=== PATIENT | female | born 1980 | race American Indian/Alaskan Native ===

== ENCOUNTER 2019-01-07 06:32 | Emergency (ER) | payer MEDICAID ==
--- NOTE | 2019-01-07 06:40 | Emergency Department Report ---
ED Chest Pain HPI - General Chief Complaint: Chest Pain Stated Complaint: CHEST PAIN Time Seen by Provider: 01/07/19 06:37 Source: patient, EMS (verbal report received from EMS.ems notes not available at time of chart dictation), RN notes reviewed, old records reviewed Mode of arrival: Ambulatory - History of Present Illness Initial Comments: This is a 38-year-old female. The patient is not known to this provider previously. 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 The patient is brought to the hospital by emergency medical services for nontraumatic right-sided chest and breast pain. The pain started at 5:00 in the morning. It is constant. It starts in the chest, breast, on the right side, radiates to the back. The patient denies oral contraceptive use, , DVT, pulmonary embolus risk factors. The patient endorses no aspirin use, and makes no indication of family history of DVT, pulmonary embolus, or coronary artery disease. The patient endorses no vomiting, no diaphoresis, no exertional shortness of breath. The patient is right-hand dominant. The pain increases with palpation, and it decreases with rest. The pain was also decreased with hydromorphone, and ketorolac. MD Complaint: chest pain -: Sudden Pain Location: right chest Pain Radiation: back Severity: moderate Quality: aching, heaviness, sharp Consistency: constant Improves With: medication-other, rest Worsens With: palpation Aspirin use within the Past 7 Days: (0) No - Related Data Previous Rx's Medication Instructions Recorded Last Taken Type Ibuprofen [Motrin] 600 mg PO Q8H PRN #30 tablet 01/07/19 Unknown Rx Allergies Allergy/AdvReac Type Severity Reaction Status Date / Time No Known Allergies Allergy Unverified 01/07/19 07:04 Heart Score - HEART Score History: Slightly suspicious EKG: Non-specific Age: < 45 Risk factors: 1-2 risk factors Troponin: < normal limit HEART Score: 2 - Critical Actions Critical Actions: 0-3 pts:0.9-1.7%risk of adverse cardiac event.Candidate for discharge ED Review of Systems ROS: Stated complaint: CHEST PAIN Other details as noted in HPI Constitutional: denies: fever Eyes: denies: eye discharge ENT: denies: dental pain Respiratory: denies: cough, shortness of breath, wheezing Cardiovascular: chest pain Gastrointestinal: denies: nausea, vomiting Genitourinary: denies: dysuria Musculoskeletal: back pain Skin: denies: lesions Neurological: weakness Psychiatric: anxiety ED Past Medical Hx - Medications Home Medications: Home Medications Medication Instructions Recorded Confirmed Last Taken Type Ibuprofen [Motrin] 600 mg PO Q8H PRN #30 tablet 01/07/19 Unknown Rx ED Physical Exam - General General appearance: alert, in no apparent distress - Head Head exam: Present: atraumatic, normocephalic - Eye Eye exam: Present: EOMI. Absent: normal appearance (chronically deformed right eye. Left eye appears to be within normal limits) - ENT ENT exam: Present: normal exam, normal orophraynx, mucous membranes moist, normal external ear exam - Neck Neck exam: Present: normal inspection, full ROM. Absent: tenderness, men ingismus - Respiratory Respiratory exam: Present: normal lung sounds bilaterally, chest wall tenderness (there is reproducible chest and breast tenderness. There is no redness, pus or streaking. There is reproducible right sided lateral thoracic rib tendernes s. There is reproducible right posterior thoracic rib tenderness. There are no vesicles noted. Chaperoned by nurse Meliton Colbert). Absent: respiratory distress - Cardiovascular Cardiovascular Exam: Present: regular rate, normal rhythm, normal heart sounds. Absent: bradycardia, tachycardia, irregular rhythm, systolic murmur, diastolic murmur, rubs, gallop - GI/Abdominal GI/Abdominal exam: Present: soft. Absent: distended, tenderness, guarding, rebound, rigid, pulsatile mass - Extremities Exam Extremities exam: Present: normal inspection, full ROM, other (2+ pulses noted in the bilateral upper, lower extremities. Compartments soft. No long bony tenderness. The pelvis is stable.). Absent: pedal edema, joint swelling, calf tenderness - Back Exam Back exam: Present: normal inspection, full ROM, paraspinal tenderness. Absent: tenderness, CVA tenderness (R) - Neurological Exam Neurological exam: Present: alert, oriented X3, normal gait, other (Extraocular movements intact. Tongue midline. No facial droop. Facial sensation intact to light touch in the V1, V2, V3 distribution bilaterally. 5 and 5 strength in 4 extremities.. Sensation is intact to light touch in 4 extremities.). Absent: motor sensory deficit - Psychiatric Psychiatric exam: Present: anxious - Skin Skin exam: Present: warm, dry, intact, normal color. Absent: rash ED Course Vital Signs 01/07/19 01/07/19 01/07/19 06:40 06:43 06:46 Temperature 97.8 F Pulse Rate 96 H 87 86 Respiratory 15 16 9 L Rate Blood Pressure 142/107 142/107 O2 Sat by Pulse 99 99 98 Oximetry 01/07/19 01/07/19 01/07/19 07:00 07:06 07:16 Temperature Pulse Rate 84 78 Respiratory 10 L 20 12 Rate Blood Pressure 142/107 140/100 O2 Sat by Pulse 98 99 Oximetry 01/07/19 01/07/19 01/07/19 07:38 08:22 08:31 Temperature Pulse Rate 81 58 L Respiratory 13 12 Rate Blood Pressure 140/100 140/100 122/80 O2 Sat by Pulse 98 96 96 Oximetry 01/07/19 01/07/19 01/07/19 08:45 09:00 09:15 Temperature Pulse Rate 56 L 58 L 51 L Respiratory 13 18 11 L Rate Blood Pressure 140/100 131/80 131/80 O2 Sat by Pulse 98 98 98 Oximetry 01/07/19 01/07/19 01/07/19 09:30 09:45 10:00 Temperature Pulse Rate 56 L 57 L 54 L Respiratory 16 16 15 Rate Blood Pressure 110/81 131/80 110/81 O2 Sat by Pulse 100 99 98 Oximetry 01/07/19 01/07/19 01/07/19 10:15 10:30 10:45 Temperature Pulse Rate 53 L 55 L 54 L Respiratory 15 14 14 Rate Blood Pressure 110/81 117/79 121/81 O2 Sat by Pulse 98 100 99 Oximetry 01/07/19 01/07/19 01/07/19 11:00 11:15 11:30 Temperature Pulse Rate 53 L 56 L 52 L Respiratory 14 14 13 Rate Blood Pressure 123/80 123/80 120/80 O2 Sat by Pulse 97 97 96 Oximetry 01/07/19 11:45 Temperature Pulse Rate 81 Respiratory 15 Rate Blood Pressure 120/80 O2 Sat by Pulse 95 Oximetry - Reevaluation(s) Reevaluation #1: 01/07/19 11:22 The patient is reassessed multiple times while in the department. She is sleeping comfortably, in a stretcher, and endorses that her pain is much improved. Resting heart rate much improved, saturating well, and patient in no acute distress. The patient was instructed about her laboratory studies, and need to follow up with outpatient cardiology. FABIAN score - Fabian Score Age > 65: (0) No Aspirin use within the Past 7 Days: (0) No 3 or more CAD Risk Factors: (0) No 2 or more Angina events in past 24 hrs: (0) No Known CAD with more than 50% Stenosis: (0) No Elevated Cardiac Markers: (0) No ST Deviation Greater than 0.5mm: (0) No FABIAN Score: 0 ED Medical Decision Making - Lab Data Result diagrams: 01/07/19 06:54 01/07/19 06:54 Vital Signs 01/07/19 01/07/19 01/07/19 06:40 06:43 06:46 Temperature 97.8 F Pulse Rate 96 H 87 86 Respiratory 15 16 9 L Rate Blood Pressure 142/107 142/107 O2 Sat by Pulse 99 99 98 Oximetry 01/07/19 01/07/19 01/07/19 07:00 07:06 07:16 Temperature Pulse Rate 84 78 Respiratory 10 L 20 12 Rate Blood Pressure 142/107 140/100 O2 Sat by Pulse 98 99 Oximetry 01/07/19 01/07/19 01/07/19 07:38 08:22 08:31 Temperature Pulse Rate 81 58 L Respiratory 13 12 Rate Blood Pressure 140/100 140/100 122/80 O2 Sat by Pulse 98 96 96 Oximetry 01/07/19 01/07/19 01/07/19 08:45 09:00 09:15 Temperature Pulse Rate 56 L 58 L 51 L Respiratory 13 18 11 L Rate Blood Pressure 140/100 131/80 131/80 O2 Sat by Pulse 98 98 98 Oximetry 01/07/19 09:30 Temperature Pulse Rate 56 L Respiratory 16 Rate Blood Pressure 110/81 O2 Sat by Pulse 100 Oximetry Lab Results 01/07/19 01/07/19 01/07/19 Range/Units 06:54 06:54 06:54 WBC 7.6 (4.5-11.0) K/mm3 RBC 4.62 (3.65-5.03) M/mm3 Hgb 14.8 H (10.1-14.3) gm/dl Hct 42.7 (30.3-42.9) % MCV 92 (79-97) fl MCH 32 (28-32) pg MCHC 35 H (30-34) % RDW 14.0 (13.2-15.2) % Plt Count 345 (140-440) K/mm3 PT (12.2-14.9) Sec. INR (0.87-1.13) Sodium 138 (137-145) mmol/L Potassium 4.0 (3.6-5.0) mmol/L Chloride 105.8 (98-107) mmol/L Carbon Dioxide 22 (22-30) mmol/L Anion Gap 14 mmol/L BUN 15 (7-17) mg/dL Creatinine 0.5 L (0.7-1.2) mg/dL Estimated GFR > 60 ml/min BUN/Creatinine Ratio 30 % Glucose 99 (65-100) mg/dL Calcium 8.6 (8.4-10.2) mg/dL Magnesium 1.90 (1.7-2.3) mg/dL Total Bilirubin 0.40 (0.1-1.2) mg/dL Direct Bilirubin < 0.2 (0-0.2) mg/dL AST 15 (5-40) units/L ALT 11 (7-56) units/L Alkaline Phosphatase 86 (35-129) units/L Total Creatine Kinase 350 H (30-135) units/L Troponin T < 0.010 (0.00-0.029) ng/mL Total Protein 7.4 (6.3-8.2) g/dL Albumin 4.7 (3.9-5) g/dL Albumin/Globulin Ratio 1.7 % Lipase 39 (13-60) units/L HCG, Quant (0-4) mIU/mL 01/07/19 01/07/19 Range/Units 06:54 06:54 WBC (4.5-11.0) K/mm3 RBC (3.65-5.03) M/mm3 Hgb (10.1-14.3) gm/dl Hct (30.3-42.9) % MCV (79-97) fl MCH (28-32) pg MCHC (30-34) % RDW (13.2-15.2) % Plt Count (140-440) K/mm3 PT 13.1 (12.2-14.9) Sec. INR 0.94 (0.87-1.13) Sodium (137-145) mmol/L Potassium (3.6-5.0) mmol/L Chloride (98-107) mmol/L Carbon Dioxide (22-30) mmol/L Anion Gap mmol/L BUN (7-17) mg/dL Creatinine (0.7-1.2) mg/dL Estimated GFR ml/min BUN/Creatinine Ratio % Glucose (65-100) mg/dL Calcium (8.4-10.2) mg/dL Magnesium (1.7-2.3) mg/dL Total Bilirubin (0.1-1.2) mg/dL Direct Bilirubin (0-0.2) mg/dL AST (5-40) units/L ALT (7-56) units/L Alkaline Phosphatase (35-129) units/L Total Creatine Kinase (30-135) units/L Troponin T (0.00-0.029) ng/mL Total Protein (6.3-8.2) g/dL Albumin (3.9-5) g/dL Albumin/Globulin Ratio % Lipase (13-60) units/L HCG, Quant < 2 (0-4) mIU/mL - EKG Data -: EKG Interpreted by Co EKG shows normal: sinus rhythm Rate: normal - EKG Data When compared to previous EKG there are: previous EKG unavailable 01/07/19 10:00 there is no prior EKG available for comparison. EKG #1 shows a sinus rhythm, normal axis, QTC prolonged, high left ventricular voltage, borderline atrial enlargement, motion artifact, this is an abnormal EKG, this is not consistent with ST elevation myocardial infarction. This EKG #2 appears to be unchanged, persistent left ventricular hypertrophy, nonspecific T-wave abnormality V2, high left ventricular voltage is noted, also abnormal, however, not consistent with ST elevation myocardial infarction. - Radiology Data Radiology results: report reviewed, image reviewed X-ray of the chest interpreted as negative for acute disease - Medical Decision Making Differential diagnosis, including but not limited to: Costochondritis, GERD, gastritis, hiatal hernia, pneumonia, pericarditis, myocarditis, acute coronary syndrome Assessment and plan: 38-year-old female, reports no pulmonary embolus or DVT risk factors, low risk by well's criteria, perc negative, low risk from a adverse cardiac event via The heart score, EKG unchanged 2, troponin negative 1, troponin #2 pending, with reproducible chest and thoracic pain. Exam is not consistent with shingles, zoster, cellulitis, or abscess. Suspect reproducible musculoskeletal pain. The patient is at low risk for major adverse cardiac event Assuming troponin -1/2 time, we will discharge the patient with appropriate pain medication, and she will be instructed to follow-up with outpatient cardiology to complete her risk stratification. Critical care attestation.: If time is entered above; I have spent that time in minutes in the direct care of this critically ill patient, excluding procedure time. ED Disposition Clinical Impression: Chest wall pain Disposition: DC-01 TO HOME OR SELFCARE Is pt being admited?: No Does the pt Need Aspirin: No Condition: Good Instructions: Chest Pain (ED), Costochondritis (ED) Additional Instructions: Rest, avoid heavy lifting, and avoid strenuous physical activities. Range of motion in the right upper extremity as tolerated. Take pain medication as needed/directed, and make sure to take with food, as the pain medication may cause an upset stomach. Laboratory studies were unremarkable, and the patient should follow-up with an outpatient vp integrity within the next 3-5 days to obtain outpatient stress test. Contact any of the listed cardiology practices on the phone numbers provided, and informed the front office staff that you, the patient, were seen here in the emergency room for chest pain, and we have recommended close outpatient follow-up for a cardiac stress test. Please return to the emergency room right away with new pain, worsened pain, migration of pain, projectile vomiting, change in mental status, confusion, inability to tolerate liquid feeds, new, worsening or different symptoms. Descanse, evite levantar objetos pesados ??y evite las actividades fsicas agotadoras. Rango de movimiento en la extremidad superior derecha segn lo tolerado. [place] los analgsicos segn sea necesario / indicado, y asegrese de tomarlos con alimentos, ya que los analgsicos pueden causar malestar estomacal. Los estudios de laboratorio fueron normales, y el paciente debe realizar un seguimiento con un cardilogo ambulatorio dentro de los siguientes 3 a 5 sharpe para obtener brianda prueba de esfuerzo ambulatorio. Comunquese con cualquiera de las prcticas de cardiologa indicadas en los nmeros de telfono proporcionados, e informe al personal de la oficina de que usted, el paciente, fue atendido aqu en la anaid de emergencias para el dolor de pecho, y le recomen damos un seguimiento ambulatorio cercano para brianda prueba de esfuerzo cardaco . Regrese de inmediato a la anaid de emergencias con dolor nuevo, dolor empeorado, migracin del vmito, vmitos con proyectiles, cambios en el estado mental, confusin, incapacidad para tolerar alimentos lquidos, sntomas nuevos, que empeoran o diferentes. Prescriptions: Ibuprofen [Motrin] 600 mg PO Q8H PRN #30 tablet PRN Reason: Pain Referrals: MICHELLE BUCHANAN MD [Primary Care Provider] - 3-5 Days REGI ZACARIAS MD [Staff Physician] - 3-5 Days ARTI PERDUE MD [Staff Physician] - 3-5 Days
[2019-01-07 07:05] LABS: Hematocrit 42.7 % (30.3-42.9); Hemoglobin 14.8 gm/dl (10.1-14.3); Mean Corpuscular HGB Conc 35 % (30-34); Mean Corpuscular Volume 92 fl (79-97); Platelet Count 345 K/mm3 (140-440); Red Blood Count 4.62 M/mm3 (3.65-5.03)
[2019-01-07 07:18] LABS: INR 0.94 (0.87-1.13)
[2019-01-07 07:33] LABS: Alanine Aminotransferase 11 units/L (7-56); Albumin 4.7 g/dL (3.9-5)
[2019-01-07] MEDS ORDERED: TYLENOL PO ONE (07:33)
[2019-01-07] MEDS ORDERED: PEPCID IV ONE (07:33)
[2019-01-07] MEDS ORDERED: TORADOL IV ONE (07:33)
[2019-01-07 07:34] LABS: BUN/Creatinine Ratio 30; Blood Urea Nitrogen 15 mg/dL (7-17); Calcium 8.6 mg/dL (8.4-10.2); Hemolysis Index 24
[2019-01-07 07:35] LABS: Bilirubin,Direct < 0.2 mg/dL (0-0.2)
[2019-01-07] MEDS ORDERED: DILAUDID IM ONE (07:46)
--- NOTE | 2019-01-07 08:21 | XRay Report ---
CHEST 2 VIEWS INDICATION: Chest pain. COMPARISON: None similar at this institution. FINDINGS: PA and lateral chest radiographs demonstrate normal cardiomediastinal silhouette. Clear lungs. Intact bones. EKG leads. CONCLUSION: No acute disease in the chest. Thank you for the opportunity to participate in this patient's care.
[2019-01-07 12:59] VITALS: BP 120/80
== END 2019-01-07 11:47 | disposition home or self-care (01) ==
LOC: ED 06:32
DX: R07.89 Other chest pain (principal)
CPT/HCPCS: 36415; 71046; 80048; 80076; 82550; 83690; 83735; 84484; 84702; 85027; 85610; 93005; 93010; 96372; 96374; 96375; 99284; J1170; J1885

== ENCOUNTER 2019-09-19 00:37 | Emergency (ER) | payer MEDICAID ==
[2019-09-19] MEDS ORDERED: SODIUM CHLORIDE 0.9% 1000 ML 1,000 ML IV ONE (02:06)
[2019-09-19 02:54] LABS: Basophils % (Auto) 0.5 % (0.0-1.8); Eosinophils # (Auto) 0.3 K/mm3 (0.0-0.4); Eosinophils % (Auto) 3.7 % (0.0-4.3); Hematocrit 36.8 % (30.3-42.9); Lymphocytes # (Auto) 2.5 K/mm3 (1.2-5.4); Lymphocytes % (Auto) 32.8 % (13.4-35.0); Mean Corpuscular HGB Conc 35 % (30-34); Mean Corpuscular Volume 91 fl (79-97); Monocytes # (Auto) 0.7 K/mm3 (0.0-0.8); Monocytes % (Auto) 9.1 % (0.0-7.3); Platelet Count 285 K/mm3 (140-440); Red Blood Count 4.04 M/mm3 (3.65-5.03); Red Cell Distribution Width 13.6 % (13.2-15.2)
[2019-09-19 03:04] LABS: Bilirubin,Urine NEG (Negative); Blood,Urine MOD (Negative); Color,Urine Yellow (Yellow); Mucus,Urine FEW /HPF; Protein,Urine <15 mg/dL mg/dL (Negative); Urobilinogen,Urine < 2.0 mg/dL (<2.0)
--- NOTE | 2019-09-19 03:05 | Cat Scan Report ---
CT OF THE ABDOMEN AND PELVIS WITHOUT CONTRAST INDICATION / CLINICAL INFORMATION: Left flank pain. Rule out kidney stones. TECHNIQUE: All CT scans at this location are performed using CT dose reduction for ALARA by means of automated e xposure control. COMPARISON: None available. FINDINGS: ABDOMEN: There are numerous small calculi throughout the medullary portions of both kidneys. There is also a probable component of medullary nephrocalcinosis. There is moderate left pelvocaliectasis and proximal ureterectasis. The liver, spleen, gallbladder, bile ducts, pancreas, adrenal glands and bowel are normal. No adenopa thy is seen. The lung bases are clear. PELVIS: The left ureter is moderately dilated to the upper SI joint. There is a 3 mm calculus at that site, best seen on axial image #126. The distal left ureter, right ureter and urinary bladder are no rmal. The uterus is mildly lobulated, suggestive of fibroids. I see no evidence of adnexal mass or free. A normal appendix is present and there is no evidence of diverticulitis. I do not identify a hernia. No acute osseous abnormality is seen. IMPRESSION: 1. 3 mm calculus in the left ureter at the level of the superior SI joint is causing moderate hydrone phrosis. 2. 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 3. Probable uterine fibroids. Signer Name: Rodolfo Coats MD Signed: 09/19/2019 3:00 AM Workstation Name: [id number]
[2019-09-19 03:06] LABS: HCG Qualitative,Urine Negative (Negative)
[2019-09-19 03:22] LABS: Alanine Aminotransferase 15 units/L (7-56); Albumin 3.8 g/dL (3.9-5); BUN/Creatinine Ratio 10; Blood Urea Nitrogen 6 mg/dL (7-17); Calcium 9.3 mg/dL (8.4-10.2); Hemolysis Index 8
--- NOTE | 2019-09-19 04:53 | Emergency Department Report ---
ED Abdominal Pain HPI - General Chief Complaint: Abdominal Pain Stated Complaint: LEFT FLANK PAIN Source: patient, EMS Mode of arrival: Ambulatory Limitations: No Limitations - History of Present Illness Initial Comments: Patient is 39-year-old female with a history of chronic recurrent kidney stones who presents to the ED via EMS with complaint of acute onset of persistent severe left flank pain that radiates to the left lower quadrant with nausea and vomiting for the last 4 hours. Patient states that the pain is sharp, stabbing and persistent. Patient denies vaginal bleeding, vaginal discharge, dysuria, urinary frequency and urgency, chest pain, shortness of breath, low back pain, dizziness, fever and chills. MD Complaint: abdominal pain, flank pain (left flank), other (nausea and vomiting) -: Sudden, hour(s) (4) Location: LLQ, suprapubic, L flank Radiation: LLQ, L flank Migration to: no migration Severity scale (0 -10): 8 Quality: stabbing, sharp Consistency: constant, now resolved Improves With: medication Worsens With: nothing Associated Symptoms: denies other symptoms, nausea, vomiting. denies: diarrhea, fever, chills, constipation, dysuria, hematemesis, hematochezia, melena, hematuria, syncope Treatments Prior to Arrival: NSAIDs - Related Data Previous Rx's Medication Instructions Recorded Last Taken Type Ibuprofen [Motrin] 600 mg PO Q8H PRN #30 tablet 01/07/19 Unknown Rx Ciprofloxacin HCl [Ciprofloxacin 500 mg PO Q12HR #20 tab 09/19/19 Unknown Rx TAB] Ketorolac [Toradol] 10 mg PO Q8H PRN #20 tablet 09/19/19 Unknown Rx Ondansetron [Zofran ODT TAB] 8 mg PO Q8HR PRN #20 tab.rapdis 09/19/19 Unknown Rx Tamsulosin [Flomax] 0.4 mg PO QDAY #10 cap 09/19/19 Unknown Rx traMADoL [Ultram] 50 mg PO Q6HR PRN #12 tablet 09/19/19 Unknown Rx Allergies Allergy/AdvReac Type Severity Reaction Status Date / Time No Known Allergies Allergy Unverified 01/07/19 07:04 ED Review of Systems ROS: Stated complaint: LEFT FLANK PAIN Other details as noted in HPI Constitutional: denies: chills, fever Eyes: denies: eye pain, eye discharge, vision change ENT: denies: ear pain, throat pain Respiratory: denies: cough, shortness of breath, wheezing Cardiovascular: denies: chest pain, palpitations Endocrine: no symptoms reported Gastrointestinal: abdominal pain (left flank pain), nausea, vomiting. denies: diarrhea Genitourinary: denies: urgency, dysuria, discharge Musculoskeletal: denies: back pain, joint swelling, arthralgia Skin: denies: rash, lesions Neurological: denies: headache, weakness, paresthesias Psychiatric: denies: anxiety, depression Hematological/Lymphatic: denies: easy bleeding, easy bruising ED Past Medical Hx - Past Medical History Previous Medical History?: Yes Hx Hypertension: Yes Hx Psychiatric Treatment: Yes (Depression and anxiety) Additional medical history: angina and right eye injury - Surgical History Past Surgical History?: Yes Additional Surgical History: eye, kidney stone removal, and - Social History Smoking Status: Current Every Day Smoker Substance Use Type: Marijuana - Medications Home Medications: Home Medications Medication Instructions Recorded Confirmed Last Taken Type Ibuprofen [Motrin] 600 mg PO Q8H PRN #30 tablet 01/07/19 Unknown Rx Ciprofloxacin HCl [Ciprofloxacin 500 mg PO Q12HR #20 tab 09/19/19 Unknown Rx TAB] Ketorolac [Toradol] 10 mg PO Q8H PRN #20 tablet 09/19/19 Unknown Rx Ondansetron [Zofran ODT TAB] 8 mg PO Q8HR PRN #20 tab.rapdis 09/19/19 Unknown Rx Tamsulosin [Flomax] 0.4 mg PO QDAY #10 cap 09/19/19 Unknown Rx traMADoL [Ultram] 50 mg PO Q6HR PRN #12 tablet 09/19/19 Unknown Rx ED Physical Exam - General Limitations: No Limitations General appearance: alert, in no apparent distress - Head Head exam: Present: atraumatic, normocephalic, normal inspection - Eye Eye exam: Present: normal appearance, PERRL, EOMI Pupils: Present: normal accommodation - ENT ENT exam: Present: normal exam, normal orophraynx, mucous membranes moist, TM's normal bilaterally, normal external ear exam - Neck Neck exam: Present: normal inspection, full ROM. Absent: tenderness - Respiratory Respiratory exam: Present: normal lung sounds bilaterally. Absent: respiratory distress, wheezes, rales, stridor, chest wall tenderness, decreased breath sounds - Cardiovascular Cardiovascular Exam: Present: regular rate, normal rhythm, normal heart sounds. Absent: systolic murmur, diastolic murmur, rubs, gallop - GI/Abdominal GI/Abdominal exam: Present: soft, tenderness (mild tenderness over left flank and left lower quadrant area), normal bowel sounds. Absent: rebound, hyperactive bowel sounds, hypoactive bowel sounds - Extremities Exam Extremities exam: Present: normal inspection, full ROM, normal capillary refill - Back Exam Back exam: Present: normal inspection, full ROM. Absent: tenderness, CVA tende rness (R), muscle spasm, paraspinal tenderness - Neurological Exam Neurological exam: Present: alert, oriented X3, CN II-XII intact, normal gait, reflexes normal - Psychiatric Psychiatric exam: Present: normal affect, normal mood - Skin Skin exam: Present: warm, dry, intact, normal color. Absent: rash ED Course Vital Signs 09/19/19 00:45 Temperature 98.2 F Pulse Rate 74 Respiratory 18 Rate Blood Pressure 133/89 O2 Sat by Pulse 93 Oximetry ED Medical Decision Making - Lab Data Result diagrams: 09/19/19 02:17 09/19/19 02:17 - Radiology Data Radiology results: report reviewed, [place] [address] Cat Scan Report Signed Patient: BAHMAN RICHEY MR#: [id number] : 1980 Acct:[id number] Age/Sex: 39 / F ADM Date: 09/19/19 Loc: ED Attending Dr: Ordering Physician: PEREZ LUCIO Date of Service: 09/19/19 Procedure(s): CT abdomen pelvis wo con Accession Number(s): [id number] cc: PEREZ LUCIO CT OF THE ABDOMEN AND PELVIS WITHOUT CONTRAST INDICATION / CLINICAL INFORMATION: Left flank pain. Rule out kidney stones. TECHNIQUE: All CT scans at this location are performed using CT dose reduction for ALARA by means of automated exposure control. COMPARISON: None available. FINDINGS: ABDOMEN: There are numerous small calculi throughout the medullary portions of both kidneys. There is also a probable component of medullary nephrocalcinosis. There is moderate left pelvocaliectasis and proximal ureterectasis. The liver, spleen, gallbladder, bile ducts, pancreas, adrenal glands and bowel are normal. No adenopathy is seen. The lung bases are clear. PELVIS: The left ureter is moderately dilated to the upper SI joint. There is a 3 mm calculus at that site, best seen on axial image #126. The distal left ureter, right ureter and urinary bladder are normal. The uterus is mildly lobulated, suggestive of fibroids. I see no evidence of adnexal mass or free. A normal appendix is present and there is no evidence of diverticulitis. I do not identify a hernia. No acute osseous abnormality is seen. IMPRESSION: 1. 3 mm calculus in the left ureter at the level of the superior SI joint is causing moderate hydronephrosis. 2. 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 3. Probable uterine fibroids. Signer Name: Rodolfo Coats MD Signed: 09/19/2019 3:00 AM Workstation Name: [id number] Transcribed By: RT Dictated By: Rodolfo Coats MD Electronically Authenticated By: Rodolfo Coats MD Signed Date/Time: 09/19/19299 DD/ 3 TD/TT: - Medical Decision Making This is a 39-year-old female with a history of chronic kidney stone with occasional recurrent flare presents to the ED with complaint of acute onset persistent severe left flank pain with nausea and vomiting intermittently for 4 hours. In the ED, patient is alert and oriented 3 and is not in distress. Patient left lung pain is well controlled upon arrival in the ED after being treated with ketorolac 30 mg IV and Zofran on how related to the ED by the EMS personnel. Lab test results were reviewed and all nonactionable. Abdomen pelvis CT scan without contrast showed a 3 mm calculus in the left ureter at the level of the superior SI joint is causing moderate hydronephrosis. It also shows bilateral nonobstructive nephrolithiasis/medullary nephrocalcinosis, and probable uterine fibroids. On reevaluation, the patient's pain is well controlled with medications and has not had any nausea or vomiting while in the ED but has been sleeping since arrival in the ED. Patient was discharged home on medications for pain, antiemetics and Flomax and was advised to drink plenty of fluids and take these medications, and consider following up with a urologist Dr. Reed on outpatient in 5-7 days or return to the ED immediately if symptoms get worse. - Differential Diagnosis kidney stones; Colitis; UTI; Muscle strain; Ovarian cyst Critical care attestation.: If time is entered above; I have spent that time in minutes in the direct care of this critically ill patient, excluding procedure time. ED Disposition Clinical Impression: Acute abdominal pain in left flank, Kidney stone on left side, Nausea and vomiting in adult Disposition: - TO HOME OR SELFCARE Is pt being admited?: No Does the pt Need Aspirin: No Condition: Stable Instructions: Abdominal Pain (ED), Flank Pain (ED), Acute Nausea and Vomiting (ED) Additional Instructions: [place] medicamentos con alimentos, donovan muchos lquidos y zion un seguimiento con hyman mdico de atencin primaria en 3-5 sharpe, o considere hacer un seguimiento con el urlogo, el Dr. Reed, en 7-10 sharpe. Regrese al servicio de urgencias de inmediato si los sntomas empeoran. Prescriptions: Ciprofloxacin HCl [Ciprofloxacin TAB] 500 mg PO Q12HR #20 tab Tamsulosin [Flomax] 0.4 mg PO QDAY #10 cap Ketorolac [Toradol] 10 mg PO Q8H PRN #20 tablet PRN Reason: Pain traMADoL [Ultram] 50 mg PO Q6HR PRN #12 tablet PRN Reason: Pain Ondansetron [Zofran ODT TAB] 8 mg PO Q8HR PRN #20 tab.rapdis PRN Reason: Nausea Referrals: RAPHAEL REED MD [Staff Physician] - 3-5 Days Time of Disposition: 04:55 Print Language: SCOTTISH
[2019-09-19 05:21] VITALS: BP 121/82
== END 2019-09-19 05:21 | disposition home or self-care (01) ==
LOC: ED 00:37
DX: R10.32 Left lower quadrant pain (principal); N20.0 Calculus of kidney; R11.2 Nausea with vomiting, unspecified; I10 Essential (primary) hypertension; F32.9 Major depressive disorder, single episode, unspecified; F17.200 Nicotine dependence, unspecified, uncomplicated; F12.10 Cannabis abuse, uncomplicated; Z98.890 Other specified postprocedural states
CPT/HCPCS: 36415; 74176; 80053; 81001; 81025; 83690; 85025; 96360; 99284; J7030

== ENCOUNTER 2020-06-06 16:12 | Emergency (ER) | payer MEDICAID ==
[2020-06-06 16:31] VITALS: BP 106/74
[2020-06-06 16:57] LABS: Basophils # (Auto) 0.1 K/mm3 (0.0-0.1); Basophils % (Auto) 0.4 % (0.0-1.8); Eosinophils % (Auto) 0.2 % (0.0-4.3); Hematocrit 41.9 % (30.3-42.9); Hemoglobin 14.3 gm/dl (10.1-14.3); Lymphocytes # (Auto) 1.9 K/mm3 (1.2-5.4); Lymphocytes % (Auto) 12.4 % (13.4-35.0); Mean Corpuscular HGB Conc 34 % (30-34); Mean Corpuscular Volume 91 fl (79-97); Monocytes # (Auto) 1.7 K/mm3 (0.0-0.8); Monocytes % (Auto) 11.2 % (0.0-7.3); Platelet Count 279 K/mm3 (140-440); Red Cell Distribution Width 13.7 % (13.2-15.2)
[2020-06-06 17:21] LABS: Alanine Aminotransferase 19 units/L (7-56); Albumin 4.2 g/dL (3.9-5); BUN/Creatinine Ratio 8; Blood Urea Nitrogen 6 mg/dL (7-17); Calcium 9.3 mg/dL (8.4-10.2); Hemolysis Index 10
[2020-06-06] MEDS ORDERED: SODIUM CHLORIDE 0.9% 1000 ML 1,000 ML IV ONE (20:18)
[2020-06-06] MEDS ORDERED: cefTRIAXone/NS 1 GM/50 ML 1 GM/50 ML BAG IV ONE (20:19)
[2020-06-06] MEDS ORDERED: METOCLOPRAMIDE 10 MG/2 ML INJ IV ONE (20:47)
[2020-06-06] MEDS ORDERED: KETOROLAC 30 MG/1 ML INJ IV ONE (20:47)
--- NOTE | 2020-06-06 20:48 | Emergency Department Report ---
ED Abdominal Pain HPI - General Chief Complaint: Abdominal Pain Stated Complaint: KIDNEY STONE PUI?: No Time Seen by Provider: 06/06/20 20:17 Source: patient Mode of arrival: Wheelchair Limitations: No Limitations - History of Present Illness Initial Comments: Patient is 39-year-old female with a history of recurrent kidney stones who presents today with complaint of acute onset of persistent severe bilateral flank pain that radiates to to her abdomen. With nausea and vomiting for the last 4 hours. Patient states that the pain is sharp, stabbing and persistent. Patient denies vaginal bleeding, vaginal discharge, dysuria, urinary frequency and urgency, chest pain, shortness of breath, low back pain, dizziness, fever and chills. MD Complaint: abdominal pain, flank pain -: Sudden Location: LLQ, RLQ Severity scale (0 -10): 8 Quality: stabbing, sharp Improves With: nothing Associated Symptoms: nausea, vomiting - Related Data Previous Rx's Medication Instructions Recorded Last Taken Type Ibuprofen [Motrin] 600 mg PO Q8H PRN #30 tablet 01/07/19 Unknown Rx traMADoL [Ultram] 50 mg PO Q6HR PRN #12 tablet 09/19/19 Unknown Rx Ciprofloxacin HCl [Ciprofloxacin 500 mg PO Q12HR #20 tab 06/06/20 Unknown Rx TAB] Ketorolac [Toradol] 10 mg PO Q8H PRN #30 tablet 06/06/20 Unknown Rx Tamsulosin [Flomax] 0.4 mg PO QDAY #10 cap 06/06/20 Unknown Rx Allergies Allergy/AdvReac Type Severity Reaction Status Date / Time No Known Allergies Allergy Unverified 01/07/19 07:04 ED Review of Systems ROS: Stated complaint: KIDNEY STONE Other details as noted in HPI Comment: All other systems reviewed and negative ED Past Medical Hx - Past Medical History Previous Medical History?: Yes Hx Hypertension: Yes Hx Psychiatric Treatment: Yes (Depression and anxiety) Additional medical history: angina and right eye injury - Surgical History Past Surgical History?: Yes Additional Surgical History: eye, kidney stone removal, and - Social History Smoking Status: Current Every Day Smoker Substance Use Type: None - Medications Home Medications: Home Medications Medication Instructions Recorded Confirmed Last Taken Type Ibuprofen [Motrin] 600 mg PO Q8H PRN #30 tablet 01/07/19 Unknown Rx traMADoL [Ultram] 50 mg PO Q6HR PRN #12 tablet 09/19/19 Unknown Rx Ciprofloxacin HCl [Ciprofloxacin 500 mg PO Q12HR #20 tab 06/06/20 Unknown Rx TAB] Ketorolac [Toradol] 10 mg PO Q8H PRN #30 tablet 06/06/20 Unknown Rx Tamsulosin [Flomax] 0.4 mg PO QDAY #10 cap 06/06/20 Unknown Rx ED Physical Exam - General Limitations: No Limitations General appearance: alert, in no apparent distress - Head Head exam: Present: atraumatic, normocephalic - Eye Eye exam: Present: normal appearance - ENT ENT exam: Present: mucous membranes moist - Neck Neck exam: Present: normal inspection - Respiratory Respiratory exam: Present: normal lung sounds bilaterally. Absent: respiratory distress - Cardiovascular Cardiovascular Exam: Present: regular rate, normal rhythm. Absent: systolic murmur, diastolic murmur, rubs, gallop - GI/Abdominal GI/Abdominal exam: Present: soft, tenderness (To palpation of the right and left quadrant of the abdomen), guarding, normal bowel sounds - Extremities Exam Extremities exam: Present: normal inspection - Back Exam Back exam: Present: normal inspection - Neurological Exam Neurological exam: Present: alert, oriented X3 - Psychiatric Psychiatric exam: Present: normal affect, normal mood - Skin Skin exam: Present: warm, dry, intact, normal color. Absent: rash ED Course Vital Signs 06/06/20 06/06/20 16:30 23:47 Temperature 99.3 F Pulse Rate 112 H 86 Respiratory 20 16 Rate Blood Pressure 106/74 O2 Sat by Pulse 99 99 Oximetry - Reevaluation(s) Reevaluation #1: 06/07/20 22:07 Upon reassessment patient is sleeping in her ED bed. Patient is comfortable. Pain is resolved. Patient had no vomiting episode throughout ED stay. Vital signs are normal she is in no acute distress at this time. ED Medical Decision Making - Lab Data Result diagrams: 06/06/20 16:38 06/06/20 16:38 Laboratory Last Values WBC 15.4 K/mm3 (4.5-11.0) H 06/06/20 16:38 RBC 4.60 M/mm3 (3.65-5.03) 06/06/20 16:38 Hgb 14.3 gm/dl (10.1-14.3) 06/06/20 16:38 Hct 41.9 % (30.3-42.9) 06/06/20 16:38 MCV 91 fl (79-97) 06/06/20 16:38 MCH 31 pg (28-32) 06/06/20 16:38 MCHC 34 % (30-34) 06/06/20 16:38 RDW 13.7 % (13.2-15.2) 06/06/20 16:38 Plt Count 279 K/mm3 (140-440) 06/06/20 16:38 Lymph % (Auto) 12.4 % (13.4-35.0) L 06/06/20 16:38 [place] % (Auto) 11.2 % (0.0-7.3) H 06/06/20 16:38 Eos % (Auto) 0.2 % (0.0-4.3) 06/06/20 16:38 Baso % (Auto) 0.4 % (0.0-1.8) 06/06/20 16:38 Lymph # (Auto) 1.9 K/mm3 (1.2-5.4) 06/06/20 16:38 [place] # (Auto) 1.7 K/mm3 (0.0-0.8) H 06/06/20 16:38 Eos # (Auto) 0.0 K/mm3 (0.0-0.4) 06/06/20 16:38 Baso # (Auto) 0.1 K/mm3 (0.0-0.1) 06/06/20 16:38 Seg Neutrophils % 75.8 % (40.0-70.0) H 06/06/20 16:38 Seg Neutrophils # 11.7 K/mm3 (1.8-7.7) H 06/06/20 16:38 Sodium 137 mmol/L (137-145) 06/06/20 16:38 Potassium 3.6 mmol/L (3.6-5.0) 06/06/20 16:38 Chloride 96.3 mmol/L (98-107) L 06/06/20 16:38 Carbon Dioxide 24 mmol/L (22-30) 06/06/20 16:38 Anion Gap 20 mmol/L 06/06/20 16:38 BUN 6 mg/dL (7-17) L 06/06/20 16:38 Creatinine 0.8 mg/dL (0.6-1.2) 06/06/20 16:38 Estimated GFR > 60 ml/min 06/06/20 16:38 BUN/Creatinine Ratio 8 % 06/06/20 16:38 Glucose 105 mg/dL (65-100) H 06/06/20 16:38 Calcium 9.3 mg/dL (8.4-10.2) 06/06/20 16:38 Total Bilirubin 0.80 mg/dL (0.1-1.2) 06/06/20 16:38 AST 13 units/L (5-40) 06/06/20 16:38 ALT 19 units/L (7-56) 06/06/20 16:38 Alkaline Phosphatase 146 units/L (35-129) H 06/06/20 16:38 Total Protein 7.6 g/dL (6.3-8.2) 06/06/20 16:38 Albumin 4.2 g/dL (3.9-5) 06/06/20 16:38 Albumin/Globulin Ratio 1.2 % 06/06/20 16:38 HCG, Qual Negative (Negative) 06/06/20 16:38 Urine Color Izabela (Yellow) 06/06/20 20:35 Urine Turbidity Cloudy (Clear) 06/06/20 20:35 Urine pH 5.0 (5.0-7.0) 06/06/20 20:35 Ur Specific [place] 1.013 (1.003-1.030) 06/06/20 20:35 Urine Protein 100 mg/dl mg/dL (Negative) 06/06/20 20:35 Urine Glucose (UA) Neg mg/dL (Negative) 06/06/20 20:35 Urine Ketones Neg mg/dL (Negative) 06/06/20 20:35 Urine Blood Lg (Negative) 06/06/20 20:35 Urine Nitrite Neg (Negative) 06/06/20 20:35 Urine Bilirubin Neg (Negative) 06/06/20 20:35 Urine Urobilinogen 4.0 mg/dL (<2.0) 06/06/20 20:35 Ur Leukocyte Esterase Lg (Negative) 06/06/20 20:35 Urine WBC (Auto) > 182.0 /HPF (0.0-6.0) H 06/06/20 20:35 Urine RBC (Auto) 16.0 /HPF (0.0-6.0) 06/06/20 20:35 U Epithel Cells (Auto) 2.0 /HPF (0-13.0) 06/06/20 20:35 Urine Bacteria (Auto) 1+ /HPF (Negative) 06/06/20 20:35 Ur Renal Epithelial Cell 1 /LPF 06/06/20 20:35 Urine Mucus 1+ /HPF 06/06/20 20:35 - Radiology Data Radiology results: report reviewed, image reviewed CT ABDOMEN AND PELVIS WITH CONTRAST INDICATION / CLINICAL INFORMATION: pain. TECHNIQUE: Axial CT images were obtained through the abdomen and pelvis after 100 cc Omni [address] scans at this location are performed using CT dose reduction for ALARA by means of automated exposure control. COMPARISON: 09/19/2019 CT abdomen pelvis FINDINGS: LOWER CHEST: No significant abnormality. HEPATOBILIARY: Enlarged liver at 20.5 cm. No focal hepatic abnormality. Gallbladder is nondistended. No biliary ductal dilatation. PANCREAS: No significant abnormality. SPLEEN: No significant abnormality. ADRENALS: No significant abnormality. GENITOURINARY: Multiple bilateral punctate nonobstructing nephroliths measuring up to 5-8 mm. Right ureter is difficult to visualize in the pelvis, however there is a new 6 mm calcification in the expected course of the right ureter that was not present on 09/19/2019. Finding could represent obstructing stone as there is mild hydronephrosis and proximal hydroureter, as well as some inflammatory change. Additionally, right kidney demonstrates mild striated nephrograms. Left ureter is unremarkable throughout its course. Bladder is decompressed. GASTROINTESTINAL/MESENTERY: No bowel obstruction or inflammation. Appendix appears normal. No free air or significant free fluid. RETROPERITONEUM: No significant adenopathy. REPRODUCTIVE ORGANS: Overall enlarged appearance of the uterus. VASCULAR: No significant abnormality. SKELETAL SYSTEM: No significant abnormality. ADDITIONAL FINDINGS: None. IMPRESSION: 1. Findings concerning for mild right-sided obstructive uropathy with 6 mm obstructing stone in the distal right ureter. Mild striated nephrograms could be seen in superimposed polynephritis. Recomm end clinical correlation and further evaluation as warranted. 2. Bilateral nephrolithiasis. 3. Hepatomegaly. Signer Name: Lennox Walter MD Signed: 06/06/2020 9:55 PM Workstation Name: [id number] Transcribed By: Dictated By: LENNOX WALTER III Electronically Authenticated By: LENNOX WALTER III Signed Date/Time: 06/06/202154 - Medical Decision Making This 39-year-old female presents to the ED with a history of kidney stones complaining of flank/abdominal pain. Upon initial assessment patient was in a lot of discomfort. Abdominal tenderness noted to CT scan with contrast was ordered. CBC did show leukocytosis, urinalysis shows WBCs. Patient received IV fluids, pain medicine and 1 g of Rocephin. Upon reassessment patient reports feeling much better pain is controlled. CT scan shows possible right ureter stone which may be passing. I discussed case with my attending Dr. Rusty De Leon who examined patient and gave her precautions. Due to patient's normal vitals and status and pain is controlled she needs to be discharged home with precautions to return with any worsening symptoms or new symptoms. Patient will follow-up with urology within 2 days. - Differential Diagnosis Acute pyelonephritis, nephrolithiasis, appendicitis, Critical care attestation.: If time is entered above; I have spent that time in minutes in the direct care of this critically ill patient, excluding procedure time. ED Disposition Clinical Impression: Nephrolithiasis, Acute pyelonephritis Disposition: - TO HOME OR SELFCARE Is pt being admited?: No Does the pt Need Aspirin: No Condition: Stable Instructions: Kidney Stones (ED), Ureteroscopy (GEN), Abdominal Pain (ED), Flank Pain (ED) Additional Instructions: Make sure to follow up with the urology as discussed. Take all your medications as you've been prescribed. If you have any worsening symptoms or develop new symptoms please return to ED immediately. Prescriptions: Ciprofloxacin HCl [Ciprofloxacin TAB] 500 mg PO Q12HR #20 tab Tamsulosin [Flomax] 0.4 mg PO QDAY #10 cap Ketorolac [Toradol] 10 mg PO Q8H PRN #30 tablet PRN Reason: Pain Referrals: ALEX FRIAS MD [Primary Care Provider] - 3-5 Days [facility] [Provider Group] - 3-5 Days CUCO MEDEROS MD [Referring] - 3-5 Days ANTONIO COOPER MD [Staff Physician] - 3-5 Days Forms: Work/School Release Form(ED) Time of Disposition: :14 Print Language: SINHALA
[2020-06-06 21:05] LABS: Bacteria,Urine 1+ /HPF (Negative); Bilirubin,Urine NEG (Negative); Blood,Urine LG (Negative); Color,Urine Amber (Yellow); Mucus,Urine 1+ /HPF; Renal Epithelial Cells,Urine 1 /LPF
[2020-06-06 21:06] LABS: WBC,Urine > 182.0 /HPF (0.0-6.0)
--- NOTE | 2020-06-06 21:59 | Cat Scan Report ---
CT ABDOMEN AND PELVIS WITH CONTRAST INDICATION / CLINICAL INFORMATION: pain. TECHNIQUE: Axial CT images were obtained through the abdomen and pelvis after 100 cc Omni [address]. [address] scans at this location are performed using CT dose reduction for ALARA by means of automated expos ure control. COMPARISON: 09/19/2019 CT abdomen pelvis FINDINGS: LOWER CHEST: No significant abnormality. HEPATOBILIARY: Enlarged liver at 20.5 cm. No focal hepatic abnormality. Gallbladder is nondistended. No biliary ductal dilatation. PANCREAS: No significant abnormality. SPLEEN: No significant abnormality. ADRENALS: No significant abnormality. GENITOURINARY: Multiple bilateral punctate nonobstructing nephroliths measuring up to 5-8 mm. Right u reter is difficult to visualize in the pelvis, however there is a new 6 mm calcification in the expec sherly course of the right ureter that was not present on 09/19/2019. Finding could represent obstructing stone as there is mild hydronephrosis and proximal hydroureter, as well as some inflammatory change. Additionally, right kidney demonstrates mild striated nephrograms. Left ureter is unremarkable throu ghout its course. Bladder is decompressed. GASTROINTESTINAL/MESENTERY: No bowel obstruction or inflammation. Appendix appears normal. No free ai r or significant free fluid. RETROPERITONEUM: No significant adenopathy. REPRODUCTIVE ORGANS: Overall enlarged appearance of the uterus. VASCULAR: No significant abnormality. SKELETAL SYSTEM: No significant abnormality. ADDITIONAL FINDINGS: None. IMPRESSION: 1. Findings concerning for mild right-sided obstructive uropathy with 6 mm obstructing stone in the d istal right ureter. Mild striated nephrograms could be seen in superimposed polynephritis. Recommend clinical correlation and further evaluation as warranted. 2. Bilateral nephrolithiasis. 3. Hepatomegaly. Signer Name: Rodolfo Walter MD Signed: 06/06/2020 9:55 PM Workstation Name: [id number]
--- NOTE | 2020-06-06 23:04 | Event Note ---
Face to Face: For this encounter I have reviewed the PA/[employer] documentation, treatment plan, medical decision making, and I had face to face time with this patient. I performed history and physical while historical interpreter was online with language line phones. Patient has right lower quadrant male pain. She also has dysuria and suprapubic discomfort. For several days she has noticed discolored urine. I do not suspect infected hydronephrosis, pyelonephrosis. Patient will likely pass stone within the next 3 4 hours. I feel that she is low risk for bacteremia. She verbalized understanding of return precautions including fever severe pain vomiting generalized malaise. She appears well nontoxic. At this time I feel that she is safe for discharge and outpatient treatment. I recommended cephalexin and Flomax to my colleague.
== END 2020-06-06 23:47 | disposition home or self-care (01) ==
LOC: ED 16:12
DX: N10 Acute pyelonephritis (principal); N20.0 Calculus of kidney; I10 Essential (primary) hypertension; F17.200 Nicotine dependence, unspecified, uncomplicated; F41.9 Anxiety disorder, unspecified; F32.89 Other specified depressive episodes
CPT/HCPCS: 36415; 74177; 80053; 81001; 84703; 85025; 96365; 96375; 99284; J0696; J1885; J2765; J7030; Q9967

== ENCOUNTER 2020-06-21 08:43 | Emergency (ER) | payer MEDICAID ==
[2020-06-21] MEDS ORDERED: levETIRAcetam 500 MG TAB PO ONE ×2 (09:29→09:30)
--- NOTE | 2020-06-21 09:57 | Emergency Department Report ---
ED General Adult HPI - General Chief complaint: Seizure Stated complaint: SEIZURE AND PAIN Time Seen by Provider: 06/21/20 09:29 Source: patient, EMS Mode of arrival: Stretcher Limitations: No Limitations - History of Present Illness Initial comments: Patient presents to the emergency department the chief complaint of seizure activity. Patient states that she has a history of seizures and normally takes Keppra 750 mg twice a day for her seizures. Patient states she has been out of her medications for 2 months because of doctors not able to see her due to the Covid situation. Patient has headache, shortness breath, chest pain, abdominal pain. -: Sudden Severity scale (0 -10): 0 Consistency: now resolved Improves with: none Worsens with: none Associated Symptoms: denies other symptoms Treatments Prior to Arrival: none - Related Data Previous Rx's Medication Instructions Recorded Last Taken Type Ibuprofen [Motrin] 600 mg PO Q8H PRN #30 tablet 01/07/19 Unknown Rx traMADoL [Ultram] 50 mg PO Q6HR PRN #12 tablet 09/19/19 Unknown Rx Ciprofloxacin HCl [Ciprofloxacin 500 mg PO Q12HR #20 tab 06/06/20 Unknown Rx TAB] Ketorolac [Toradol] 10 mg PO Q8H PRN #30 tablet 06/06/20 Unknown Rx Tamsulosin [Flomax] 0.4 mg PO QDAY #10 cap 06/06/20 Unknown Rx levETIRAcetam [Keppra TAB] 750 mg PO BID #60 tablet 06/21/20 Unknown Rx Allergies Allergy/AdvReac Type Severity Reaction Status Date / Time No Known Allergies Allergy Unverified 01/07/19 07:04 ED Review of Systems ROS: Stated complaint: SEIZURE AND PAIN Other details as noted in HPI Comment: All other systems reviewed and negative Constitutional: denies: chills, fever Eyes: denies: eye pain, eye discharge, vision change ENT: denies: ear pain, throat pain Respiratory: denies: cough, shortness of breath, wheezing Cardiovascular: denies: chest pain, palpitations Endocrine: no symptoms reported Gastrointestinal: denies: abdominal pain, nausea, diarrhea Genitourinary: denies: urgency, dysuria, discharge Musculoskeletal: denies: back pain, joint swelling, arthralgia Skin: denies: rash, lesions Neurological: other (seizure). denies: headache, weakness, paresthesias Psychiatric: denies: anxiety, depression Hematological/Lymphatic: denies: easy bleeding, easy bruising ED Past Medical Hx - Past Medical History Previous Medical History?: Yes Hx Hypertension: Yes Hx Seizures: Yes Hx Psychiatric Treatment: Yes (Depression and anxiety) Additional medical history: angina and right eye injury - Surgical History Additional Surgical History: eye, kidney stone removal, and - Social History Smoking Status: Current Every Day Smoker - Medications Home Medications: Home Medications Medication Instructions Recorded Confirmed Last Taken Type Ibuprofen [Motrin] 600 mg PO Q8H PRN #30 tablet 01/07/19 Unknown Rx traMADoL [Ultram] 50 mg PO Q6HR PRN #12 tablet 09/19/19 Unknown Rx Ciprofloxacin HCl [Ciprofloxacin 500 mg PO Q12HR #20 tab 06/06/20 Unknown Rx TAB] Ketorolac [Toradol] 10 mg PO Q8H PRN #30 tablet 06/06/20 Unknown Rx Tamsulosin [Flomax] 0.4 mg PO QDAY #10 cap 06/06/20 Unknown Rx levETIRAcetam [Keppra TAB] 750 mg PO BID #60 tablet 06/21/20 Unknown Rx ED Physical Exam - General Limitations: No Limitations General appearance: alert, in no apparent distress - Head Head exam: Present: atraumatic, normocephalic - Eye Eye exam: Present: normal appearance, PERRL, EOMI - ENT ENT exam: Present: mucous membranes moist - Neck Neck exam: Present: normal inspection - Respiratory Respiratory exam: Present: normal lung sounds bilaterally. Absent: respiratory distress - Cardiovascular Cardiovascular Exam: Present: regular rate, normal rhythm. Absent: systolic murmur, diastolic murmur, rubs, gallop - GI/Abdominal GI/Abdominal exam: Present: soft, normal bowel sounds. Absent: distended, tenderness - Extremities Exam Extremities exam: Present: normal inspection - Back Exam Back exam: Present: normal inspection - Neurological Exam Neurological exam: Present: alert, oriented X3, CN II-XII intact. Absent: motor sensory deficit - Psychiatric Psychiatric exam: Present: normal affect, normal mood - Skin Skin exam: Present: warm, dry, intact, normal color. Absent: rash ED Course Vital Signs 06/21/20 09:47 Respiratory 16 Rate O2 Sat by Pulse 98 Oximetry ED Medical Decision Making - Medical Decision Making Patient given PO keppra Critical care attestation.: If time is entered above; I have spent that time in minutes in the direct care of this critically ill patient, excluding procedure time. ED Disposition Clinical Impression: Seizure Disposition: DC-01 TO HOME OR SELFCARE Is pt being admited?: No Does the pt Need Aspirin: No Condition: Stable Instructions: Recurrent Seizures Adult (ED) Additional Instructions: Return if worse Prescriptions: levETIRAcetam [Keppra TAB] 750 mg PO BID #60 tablet Referrals: PRIMARY CARE, [Primary Care Provider] - 3-5 Days Time of Disposition: 09:56
--- NOTE | 2020-06-21 09:59 | Emergency Department Report ---
ED General Adult HPI - General Chief complaint: Seizure Stated complaint: SEIZURE AND PAIN Time Seen by Provider: 06/21/20 09:29 Source: patient, EMS Mode of arrival: Stretcher Limitations: No Limitations - History of Present Illness Initial comments: Patient presents to the emergency department the chief complaint of seizure activity. Patient states she has a history of seizures and normally takes 750 mg of Keppra twice a day for her seizures. Patient states for the last 2 months she has been out of her medication because she is not able to see her doctor due to the coronavirus. Patient denies headache, chest pain, abdominal pain, shortness of breath. -: Sudden Severity scale (0 -10): 0 Improves with: none Worsens with: none Associated Symptoms: denies other symptoms Treatments Prior to Arrival: none - Related Data Previous Rx's Medication Instructions Recorded Last Taken Type Ibuprofen [Motrin] 600 mg PO Q8H PRN #30 tablet 01/07/19 Unknown Rx traMADoL [Ultram] 50 mg PO Q6HR PRN #12 tablet 09/19/19 Unknown Rx Ciprofloxacin HCl [Ciprofloxacin 500 mg PO Q12HR #20 tab 06/06/20 Unknown Rx TAB] Ketorolac [Toradol] 10 mg PO Q8H PRN #30 tablet 06/06/20 Unknown Rx Tamsulosin [Flomax] 0.4 mg PO QDAY #10 cap 06/06/20 Unknown Rx levETIRAcetam [Keppra TAB] 750 mg PO BID #60 tablet 06/21/20 Unknown Rx Allergies Allergy/AdvReac Type Severity Reaction Status Date / Time No Known Allergies Allergy Unverified 01/07/19 07:04 ED Review of Systems ROS: Stated complaint: SEIZURE AND PAIN Other details as noted in HPI Constitutional: denies: chills, fever Eyes: denies: eye pain, eye discharge, vision change ENT: denies: ear pain, throat pain Respiratory: denies: cough, shortness of breath, wheezing Cardiovascular: denies: chest pain, palpitations Endocrine: no symptoms reported Gastrointestinal: denies: abdominal pain, nausea, diarrhea Genitourinary: denies: urgency, dysuria, discharge Musculoskeletal: denies: back pain, joint swelling, arthralgia Skin: denies: rash, lesions Neurological: other (seizure). denies: headache, weakness, paresthesias Psychiatric: denies: anxiety, depression Hematological/Lymphatic: denies: easy bleeding, easy bruising ED Past Medical Hx - Past Medical History Previous Medical History?: Yes Hx Hypertension: Yes Hx Seizures: Yes Hx Psychiatric Treatment: Yes (Depression and anxiety) Additional medical history: angina and right eye injury - Surgical History Additional Surgical History: eye, kidney stone removal, and - Social History Smoking Status: Current Every Day Smoker - Medications Home Medications: Home Medications Medication Instructions Recorded Confirmed Last Taken Type Ibuprofen [Motrin] 600 mg PO Q8H PRN #30 tablet 01/07/19 Unknown Rx traMADoL [Ultram] 50 mg PO Q6HR PRN #12 tablet 09/19/19 Unknown Rx Ciprofloxacin HCl [Ciprofloxacin 500 mg PO Q12HR #20 tab 06/06/20 Unknown Rx TAB] Ketorolac [Toradol] 10 mg PO Q8H PRN #30 tablet 06/06/20 Unknown Rx Tamsulosin [Flomax] 0.4 mg PO QDAY #10 cap 06/06/20 Unknown Rx levETIRAcetam [Keppra TAB] 750 mg PO BID #60 tablet 06/21/20 Unknown Rx ED Physical Exam - General Limitations: No Limitations General appearance: alert, in no apparent distress - Head Head exam: Present: atraumatic, normocephalic - Eye Eye exam: Present: normal appearance - ENT ENT exam: Present: mucous membranes moist - Neck Neck exam: Present: normal inspection - Respiratory Respiratory exam: Present: normal lung sounds bilaterally. Absent: respiratory distress - Cardiovascular Cardiovascular Exam: Present: regular rate, normal rhythm. Absent: systolic murmur, diastolic murmur, rubs, gallop - GI/Abdominal GI/Abdominal exam: Present: soft, normal bowel sounds. Absent: distended, tenderness - Extremities Exam Extremities exam: Present: normal inspection - Back Exam Back exam: Present: normal inspection - Neurological Exam Neurological exam: Present: alert, oriented X3, CN II-XII intact. Absent: motor sensory deficit - Psychiatric Psychiatric exam: Present: normal affect, normal mood - Skin Skin exam: Present: warm, dry, intact, normal color. Absent: rash ED Course Vital Signs 06/21/20 09:47 Respiratory 16 Rate O2 Sat by Pulse 98 Oximetry ED Medical Decision Making - Medical Decision Making Patient given 1500 mg of Keppra by mouth in the ED Critical care attestation.: If time is entered above; I have spent that time in minutes in the direct care of this critically ill patient, excluding procedure time. ED Disposition Clinical Impression: Seizure Disposition: DC-01 TO HOME OR SELFCARE Is pt being admited?: No Does the pt Need Aspirin: No Condition: Stable Instructions: Recurrent Seizures Adult (ED) Additional Instructions: Return if worse Prescriptions: levETIRAcetam [Keppra TAB] 750 mg PO BID #60 tablet Referrals: PRIMARY MD ALTAGRACIA [Primary Care Provider] - 3-5 Days LUCI SUAREZ MD [Staff Physician] - 3-5 Days Time of Disposition: 09:58
[2020-06-21 12:21] VITALS: BP 137/93
== END 2020-06-21 12:17 | disposition home or self-care (01) ==
LOC: ED 08:43
DX: G40.909 Epilepsy, unspecified, not intractable, without status epilepticus (principal); I10 Essential (primary) hypertension; F32.9 Major depressive disorder, single episode, unspecified; F41.9 Anxiety disorder, unspecified; F17.200 Nicotine dependence, unspecified, uncomplicated; Z79.899 Other long term (current) drug therapy; Z98.890 Other specified postprocedural states

== ENCOUNTER 2020-07-08 09:59 | Outpatient (CLI) | payer MEDICAID ==
[2020-07-08 10:21] LABS: Basophils % (Auto) 0.7 % (0.0-1.8); Eosinophils # (Auto) 0.3 K/mm3 (0.0-0.4); Hematocrit 39.8 % (30.3-42.9); Hemoglobin 13.9 gm/dl (10.1-14.3); Lymphocytes # (Auto) 2.1 K/mm3 (1.2-5.4); Lymphocytes % (Auto) 33.2 % (13.4-35.0); Mean Corpuscular HGB Conc 35 % (30-34); Mean Corpuscular Volume 90 fl (79-97); Monocytes # (Auto) 0.5 K/mm3 (0.0-0.8); Monocytes % (Auto) 7.2 % (0.0-7.3); Platelet Count 305 K/mm3 (140-440); Red Blood Count 4.41 M/mm3 (3.65-5.03); Red Cell Distribution Width 14.4 % (13.2-15.2)
[2020-07-08 10:44] LABS: Alanine Aminotransferase 10 units/L (7-56); Albumin 4.2 g/dL (3.9-5); Blood Urea Nitrogen 7 mg/dL (7-17); Chol/HDL Ratio 4.73 %; HDL Cholesterol 38 mg/dL (40-59); Hemolysis Index 3; LDL Cholesterol,Direct 128 mg/dL (50-130)
[2020-07-08 10:46] LABS: BUN/Creatinine Ratio 12
== END 2020-07-08 10:00 | disposition home or self-care (01) ==
LOC: LAB 09:59
PROVIDERS: ATTEND Internal Medicine
DX: Z00.00 Encounter for general adult medical examination without abnormal findings (principal); Z13.220 Encounter for screening for lipoid disorders; Z13.29 Encounter for screening for other suspected endocrine disorder
CPT/HCPCS: 36415; 80053; 80061; 83036; 84443; 85025

== ENCOUNTER 2020-11-14 11:38 | Emergency (ER) | payer MEDICAID ==
[2020-11-14] MEDS ORDERED: MORPHINE 4 MG/1 ML INJ IV ONE (11:49)
[2020-11-14] MEDS ORDERED: SODIUM CHLORIDE 0.9% 1000 ML 1,000 ML IV ONE ×2 (11:49→15:07)
[2020-11-14] MEDS ORDERED: ONDANSETRON 4 MG/2 ML INJ IV ONE (11:49)
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
[2020-11-14 12:52] LABS: Basophils % (Auto) 0.3 % (0.0-1.8); Eosinophils % (Auto) 0.1 % (0.0-4.3); Hematocrit 36.8 % (30.3-42.9); Hemoglobin 12.6 gm/dl (10.1-14.3); Lymphocytes # (Auto) 0.5 K/mm3 (1.2-5.4); Mean Corpuscular HGB Conc 34 % (30-34); Mean Corpuscular Volume 91 fl (79-97); Monocytes % (Auto) 10.1 % (0.0-7.3); Platelet Count 192 K/mm3 (140-440); Red Blood Count 4.04 M/mm3 (3.65-5.03); Red Cell Distribution Width 13.7 % (13.2-15.2)
[2020-11-14 13:18] LABS: Alanine Aminotransferase 15 units/L (7-56); Albumin 3.3 g/dL (3.9-5); BUN/Creatinine Ratio 19; Blood Urea Nitrogen 19 mg/dL (7-17); Hemolysis Index 0
[2020-11-14 14:06] LABS: Bacteria,Urine 4+ /HPF (Negative); Bilirubin,Urine NEG (Negative); Blood,Urine MOD (Negative); Color,Urine Yellow (Yellow)
[2020-11-14 14:07] LABS: WBC,Urine > 182.0 /HPF (0.0-6.0)
--- NOTE | 2020-11-14 15:02 | Cat Scan Report ---
CT ABDOMEN AND PELVIS WITH CONTRAST HISTORY: MAIN COMPARISON: 06/06/2020 TECHNIQUE: Axial CT images were obtained through the abdomen and pelvis after 100 cc of IV contrast. Sagittal and coronal reformatted images. All CT scans at this location are performed using CT dose re duction for ALARA by means of automated exposure control. FINDINGS: CT ABDOMEN: Lung Bases: Clear. Liver: No significant abnormality. Biliary: No significant abnormality. Spleen: No significant abnormality. Unenlarged. Pancreas: No significant abnormality. Adrenals: No significant abnormality. Kidneys: Subtle perfusion defects are identified in the left kidney which could represent early pyelo nephritis. No perinephric fluid. Multiple bilateral renal calyceal stones are identified measuring up to 5 mm. No ureteral stones or hydronephrosis is appreciated. Lymphatics: No lymphadenopathy. Vasculature: No significant abnormality. Bowel/Peritoneum: No significant abnormality. No free air. No free fluid. CT PELVIS: : No significant abnormality. Osseous Structures: No significant abnormality. Additional Findings: None IMPRESSION: Findings concerning for early left pyelonephritis, correlate with the patient's clinical presentation . Bilateral nephrolithiasis. No hydronephrosis. Signer Name: Jose Guadalupe Mathias Jr, MD Signed: 11/14/2020 2:57 PM Workstation Name: [id number]
[2020-11-14] MEDS ORDERED: cefTRIAXone/NS 1 GM/50 ML 1 GM/50 ML BAG IV ONE (15:03)
[2020-11-14] MEDS ORDERED: KETOROLAC 30 MG/1 ML INJ IV ONE (15:06)
[2020-11-14 16:50] VITALS: BP 121/61
== END 2020-11-14 17:05 | disposition home or self-care (01) ==
LOC: ED 11:38
DX: N12 Tubulo-interstitial nephritis, not specified as acute or chronic (principal); N20.0 Calculus of kidney; I10 Essential (primary) hypertension; R56.9 Unspecified convulsions; F32.9 Major depressive disorder, single episode, unspecified; F41.9 Anxiety disorder, unspecified; F17.200 Nicotine dependence, unspecified, uncomplicated; Z98.890 Other specified postprocedural states; Z79.1 Long term (current) use of non-steroidal anti-inflammatories (NSAID); Z79.899 Other long term (current) drug therapy
CPT/HCPCS: 36415; 74177; 80053; 81001; 83690; 84703; 85025; 87086; 96361; 96365; 96375; 99284; J0696; J1885; J2270; J2405; J7030; Q9967

== ENCOUNTER 2021-01-11 08:45 | Emergency (ER) | payer MEDICAID ==
[2021-01-11 09:54] LABS: Hematocrit 39.8 % (30.3-42.9); Hemoglobin 14.1 gm/dl (10.1-14.3); Mean Corpuscular HGB Conc 35 % (30-34); Mean Corpuscular Volume 91 fl (79-97); Platelet Count 335 K/mm3 (140-440); Red Blood Count 4.39 M/mm3 (3.65-5.03); Red Cell Distribution Width 13.5 % (13.2-15.2)
[2021-01-11 10:09] LABS: Blood Urea Nitrogen 8 mg/dL (7-17); Calcium 8.8 mg/dL (8.4-10.2); Hemolysis Index 6
[2021-01-11 10:19] LABS: BUN/Creatinine Ratio 16
[2021-01-11] MEDS ORDERED: levETIRAcetam 1,000 MG in SODIUM CHLORIDE 0.9% 100 ML IV ONE (10:26)
[2021-01-11] MEDS ORDERED: ONDANSETRON 4 MG/2 ML INJ IV ONE (10:26)
[2021-01-11] MEDS ORDERED: SODIUM CHLORIDE 0.9% 1000 ML 1,000 ML IV ONE (10:26)
[2021-01-11] MEDS ORDERED: KETOROLAC 30 MG/1 ML INJ IV ONE (10:26)
--- NOTE | 2021-01-11 10:31 | Emergency Department Report ---
ED Seizure HPI - General Chief Complaint: Seizure Stated Complaint: SEIZURE/ABD PAIN X 2 MONTHS Time Seen by Provider: 01/11/21 10:16 Source: EMS Mode of arrival: Stretcher Limitations: No Limitations - History of Present Illness Initial Comments: 40-year-old female, history of hypertension, scoliosis, depression, schizophrenia, presents to ED following seizure at home. Patient reports she has a history of seizures. States she takes Keppra for her seizures. It is unclear patient has been compliant with her medications. She reports she takes Keppra 750 p.o. twice daily. Patient is currently complaining of a headache and also some right flank pain and nausea. She denies actual abdominal pain.. She reports history of kidney stones. MD Complaint: seizure -: This morning Description of Episode: loss of consciousness Witnessed:: Yes Seizure History: known seizure disorder Place: home Associated Symptoms: denies: chest pain, cough, fever/chills, shortness of breath Treatments Prior to Arrival: none - Related Data Previous Rx's Medication Instructions Recorded Last Taken Type Ibuprofen [Motrin] 600 mg PO Q8H PRN #30 tablet 01/07/19 Unknown Rx traMADoL [Ultram] 50 mg PO Q6HR PRN #12 tablet 09/19/19 Unknown Rx Ciprofloxacin HCl [Ciprofloxacin 500 mg PO Q12HR #20 tab 06/06/20 Unknown Rx TAB] Ketorolac [Toradol] 10 mg PO Q8H PRN #30 tablet 06/06/20 Unknown Rx Tamsulosin [Flomax] 0.4 mg PO QDAY #10 cap 06/06/20 Unknown Rx HYDROcodone/APAP 5-325 [[employer] 1 each PO Q6HR PRN #12 tablet 11/14/20 Unknown Rx 5/325] Ondansetron [Zofran Odt] 4 mg PO Q8HR PRN #12 tab.rapdis 11/14/20 Unknown Rx cephALEXin [Keflex] 500 mg PO BID 10 Days #20 cap 11/14/20 Unknown Rx Ciprofloxacin HCl 500 mg PO BID 7 Days #14 tablet 01/11/21 Unknown Rx Naproxen [Naprosyn] 500 mg PO BID #20 tablet 01/11/21 Unknown Rx levETIRAcetam [Keppra TAB] 750 mg PO BID #60 tablet 01/11/21 Unknown Rx traMADoL [Ultram] 50 mg PO Q6HR PRN #7 tablet 01/11/21 Unknown Rx Allergies Allergy/AdvReac Type Severity Reaction Status Date / Time No Known Allergies Allergy Unverified 01/07/19 07:04 ED Review of Systems ROS: Stated complaint: SEIZURE/ABD PAIN X 2 MONTHS Other details as noted in HPI Comment: All other systems reviewed and negative Constitutional: denies: fever Cardiovascular: denies: chest pain Gastrointestinal: nausea. denies: abdominal pain, vomiting Genitourinary: denies: hematuria Musculoskeletal: back pain Neurological: headache ED Past Medical Hx - Past Medical History Hx Hypertension: Yes Hx Seizures: Yes Hx Psychiatric Treatment: Yes (Depression and anxiety) Additional medical history: angina and right eye injury - Surgical History Additional Surgical History: eye, kidney stone removal, and - Social History Smoking Status: Unknown if ever smoked - Medications Home Medications: Home Medications Medication Instructions Recorded Confirmed Last Taken Type Ibuprofen [Motrin] 600 mg PO Q8H PRN #30 tablet 01/07/19 Unknown Rx traMADoL [Ultram] 50 mg PO Q6HR PRN #12 tablet 09/19/19 Unknown Rx Ciprofloxacin HCl [Ciprofloxacin 500 mg PO Q12HR #20 tab 06/06/20 Unknown Rx TAB] Ketorolac [Toradol] 10 mg PO Q8H PRN #30 tablet 06/06/20 Unknown Rx Tamsulosin [Flomax] 0.4 mg PO QDAY #10 cap 06/06/20 Unknown Rx HYDROcodone/APAP 5-325 [[employer] 1 each PO Q6HR PRN #12 tablet 11/14/20 Unknown Rx 5/325] Ondansetron [Zofran Odt] 4 mg PO Q8HR PRN #12 tab.rapdis 11/14/20 Unknown Rx cephALEXin [Keflex] 500 mg PO BID 10 Days #20 cap 11/14/20 Unknown Rx Ciprofloxacin HCl 500 mg PO BID 7 Days #14 tablet 01/11/21 Unknown Rx Naproxen [Naprosyn] 500 mg PO BID #20 tablet 01/11/21 Unknown Rx levETIRAcetam [Keppra TAB] 750 mg PO BID #60 tablet 01/11/21 Unknown Rx traMADoL [Ultram] 50 mg PO Q6HR PRN #7 tablet 01/11/21 Unknown Rx ED Physical Exam - General Limitations: No Limitations General appearance: alert, in no apparent distress - Head Head exam: Present: atraumatic, normocephalic - Eye Eye exam: Present: other (Right pupil irregularity noted, patient states this is due to the injury from 8 years ago) - ENT ENT exam: Present: mucous membranes moist - Neck Neck exam: Present: normal inspection - Respiratory Respiratory exam: Present: normal lung sounds bilaterally. Absent: respiratory distress - Cardiovascular Cardiovascular Exam: Present: regular rate, normal rhythm - GI/Abdominal GI/Abdominal exam: Present: soft. Absent: distended, tenderness - Extremities Exam Extremities exam: Present: normal inspection - Back Exam Back exam: Present: CVA tenderness (R). Absent: CVA tenderness (L) - Neurological Exam Neurological exam: Present: alert, oriented X3, CN II-XII intact. Absent: motor sensory deficit - Psychiatric Psychiatric exam: Present: normal affect, normal mood - Skin Skin exam: Present: warm, dry, intact, normal color ED Course Vital Signs 01/11/21 01/11/21 01/11/21 08:49 08:53 09:00 Temperature 98.4 F Pulse Rate 96 H 100 H Respiratory 15 10 L Rate Blood Pressure 135/96 127/92 Blood Pressure 127/92 [Right] O2 Sat by Pulse 99 98 99 Oximetry 01/11/21 01/11/21 01/11/21 09:30 10:00 10:30 Temperature Pulse Rate 102 H 100 H 93 H Respiratory 21 19 23 Rate Blood Pressure 127/92 143/104 143/104 Blood Pressure [Right] O2 Sat by Pulse 98 98 99 Oximetry 01/11/21 01/11/21 01/11/21 11:00 11:30 12:00 Temperature Pulse Rate 86 93 H 96 H Respiratory 25 H 19 17 Rate Blood Pressure 139/92 139/92 149/109 Blood Pressure [Right] O2 Sat by Pulse 98 100 Oximetry 01/11/21 01/11/21 01/11/21 12:30 13:00 13:30 Temperature Pulse Rate 93 H 93 H 84 Respiratory 21 17 21 Rate Blood Pressure 149/109 154/110 149/109 Blood Pressure [Right] O2 Sat by Pulse 99 97 98 Oximetry 01/11/21 01/11/21 14:00 14:30 Temperature Pulse Rate 85 95 H Respiratory 19 13 Rate Blood Pressure 158/108 154/110 Blood Pressure [Right] O2 Sat by Pulse 97 Oximetry - Reevaluation(s) Reevaluation #1: 01/11/21 14:20 Patient ANO x3. No seizure activity while in ED. Will discharge at this time. ED Medical Decision Making - Lab Data Result diagrams: 01/11/21 09:34 01/11/21 09:34 - Radiology Data Radiology results: report reviewed, image reviewed - Medical Decision Making 40-year-old female presents to ED following seizure at home. Here in the ED patient is A&O x3, no neuro deficits. IV Keppra given. Patient complaining of some right flank pain. She reports history of kidney stones. CT is negative for any passing stones. UA is positive for nitrites and small amount of WBCs and bacteria. Since patient has CVA tenderness on exam, and UA findings, will treat for pyelonephritis. Patient has not had any seizure activity while here in the ED. Patient will be discharged at this time with prescriptions. Return precautions given. - Differential Diagnosis Seizure, intracranial abnormality, UTI, kidney stone, pyelonephritis Critical care attestation.: If time is entered above; I have spent that time in minutes in the direct care of this critically ill patient, excluding procedure time. ED Disposition Clinical Impression: Seizure, Acute pyelonephritis Disposition: - TO HOME OR SELFCARE Is pt being admited?: No Condition: Stable Instructions: Pyelonephritis, Adult, Sgwa-[id number], Epilepsy, [id number] Prescriptions: Ciprofloxacin HCl 500 mg PO BID 7 Days #14 tablet levETIRAcetam [Keppra TAB] 750 mg PO BID #60 tablet Naproxen [Naprosyn] 500 mg PO BID #20 tablet traMADoL [Ultram] 50 mg PO Q6HR PRN #7 tablet PRN Reason: Pain Referrals: ALEX FRIAS MD [Primary Care Provider] - 3-5 Days [facility] [Provider Group] - 3-5 Days CECI LOVELL MD [Referring] - 3-5 Days Time of Disposition: 14:23
[2021-01-11] MEDS ORDERED: levETIRAcetam 1000 MG/NS 0.75% 1,000 MG/100 ML BAG IV SCH (11:00)
--- NOTE | 2021-01-11 11:29 | Cat Scan Report ---
. CT HEAD WITHOUT CONTRAST INDICATION / CLINICAL INFORMATION: headache, seizure. TECHNIQUE: Axial imaging performed from the skull apex through the skull base without the use of cont rast. Sagittal and coronal reformatted images. All CT scans at this location are performed using CT dose reduction for ALARA by means of automated exposure control. COMPARISON: None available. FINDINGS: CEREBRAL PARENCHYMA: No significant abnormality. No acute territorial infarct. HEMORRHAGE: None. EXTRA-AXIAL SPACES: Normal in size and morphology for the patient's age. VENTRICULAR SYSTEM: Normal in size and morphology for the patient's age. MIDLINE SHIFT OR HERNIATION: None. CEREBELLUM / BRAINSTEM: No significant abnormality. CALVARIUM: No significant abnormality. ORBITS: The right globe is atrophic and partially calcified, correlate with history. The left globe i s unremarkable. Retro-orbital structures are unremarkable. PARANASAL SINUSES / MASTOID AIR CELLS: Normal as visualized. SOFT TISSUES of HEAD: No significant abnormality. ADDITIONAL FINDINGS: None. IMPRESSION: No acute intracranial abnormality. Signer Name: Jose Guadalupe Mathias Jr, MD Signed: 01/11/2021 11:25 AM Workstation Name: [id number]
--- NOTE | 2021-01-11 11:33 | Cat Scan Report ---
CT ABDOMEN AND PELVIS WITHOUT CONTRAST HISTORY: Right flank pain COMPARISON: CT on 11/14/2020 TECHNIQUE: Routine abdominal and pelvic CT exam performed without contrast. Lack of intravenous cont rast limits evaluation of the vascular and solid organs.. All CT scans at this location are performed using CT dose reduction for ALARA by means of automated exposure control. FINDINGS: CT ABDOMEN: Lung Bases: No significant abnormality. Liver: No significant abnormality. Biliary: No significant abnormality. Spleen: No significant abnormality. Unenlarged. Pancreas: No significant abnormality. Adrenals: No significant abnormality. Kidneys: There are multiple calcifications in both kidneys mostly confined to the medullary regions o f the renal collecting systems. There is no hydronephrosis. No ureteral stones are identified. Lymphatics: No lymphadenopathy. Vasculature: Atherosclerotic but nonaneurysmal abdominal aorta. Bowel/Peritoneum: No significant abnormality. No free air. No free fluid. Normal appendix. CT PELVIC: : No significant abnormality. Lymphatics: No lymphadenopathy. Osseous Structures: No aggressive appearing osseous lesions. Additional Findings: None IMPRESSION: 1. No ureteral stones or hydronephrosis. 2. Stable bilateral renal calcifications with pattern suggesting renal medullary nephrocalcinosis. Signer Name: Harsha Hayes MD Signed: 01/11/2021 11:29 AM Workstation Name: [id number]
[2021-01-11 14:12] LABS: Bacteria,Urine 1+ /HPF (Negative); Bilirubin,Urine NEG (Negative); Blood,Urine SM (Negative); Color,Urine Yellow (Yellow); Urobilinogen,Urine < 2.0 mg/dL (<2.0)
[2021-01-11 15:20] VITALS: BP 154/110
== END 2021-01-11 15:00 | disposition home or self-care (01) ==
LOC: ED 08:45
DX: R56.9 Unspecified convulsions (principal); N10 Acute pyelonephritis; R10.9 Unspecified abdominal pain; I10 Essential (primary) hypertension; F32.9 Major depressive disorder, single episode, unspecified; Z98.890 Other specified postprocedural states; Z79.1 Long term (current) use of non-steroidal anti-inflammatories (NSAID); Z79.899 Other long term (current) drug therapy
CPT/HCPCS: 36415; 70450; 74176; 80048; 81001; 84703; 85027; 96374; 96375; 99284; J1885; J1953; J2405; J7030

== ENCOUNTER 2021-10-05 08:27 | Emergency (ER) | payer MEDICAID ==
[2021-10-05] MEDS ORDERED: IBUPROFEN 600 MG TAB PO ONE (09:11)
[2021-10-05] MEDS ORDERED: HYDROcodone/ACETAMINOPHEN 5-325 MG TAB PO ONE (09:11)
--- NOTE | 2021-10-05 09:13 | Emergency Department Report ---
ED Fall HPI - General Chief Complaint: Fall Stated Complaint: FALL Time Seen by Provider: 10/05/21 08:56 Source: patient Mode of arrival: Ambulatory - History of Present Illness Initial Comments: 41-year-old female presents to the ER today with complaints of right buttocks pain and right elbow pain after accidental fall about 1 week ago. Patient states that the incident occurred while she was visiting [place]. She states that it happened at a house. She states that she was walking around some steps when she slipped and fell. She states that she fell down about 5 steps. She landed on her buttocks and struck the posterior aspect of her right shoulder. She has been having pain to this area since the fall. She states that this is her first time getting evaluated since the fall. She is unable to tell of any bruising or swelling. She has not been taking anything for pain. She reports no head injury, neck pain, chest pain, abdominal pain or any additional symptoms at this time. MD Complaint: fall, other (right buttock pain/right elbow pain ) -: week(s) (1) - Related Data Previous Rx's Medication Instructions Recorded Last Taken Type levETIRAcetam [Keppra TAB] 750 mg PO BID #60 tablet 01/11/21 Unknown Rx HYDROcodone/APAP 5-325 [[place] 1 each PO Q4HR PRN #12 tablet 10/05/21 Unknown Rx 5/325] Ibuprofen [Motrin] 600 mg PO Q8H PRN #30 tablet 10/05/21 Unknown Rx Allergies Allergy/AdvReac Type Severity Reaction Status Date / Time No Known Allergies Allergy Unverified 01/07/19 07:04 ED Review of Systems ROS: Stated complaint: FALL Other details as noted in HPI Comment: All other systems reviewed and negative Respiratory: denies: cough, shortness of breath, wheezing Cardiovascular: denies: chest pain, palpitations Musculoskeletal: joint swelling, arthralgia, myalgia, other (Right buttocks pain) Skin: denies: rash, lesions Neurological: denies: headache, weakness, numbness, paresthesias, confusion, abnormal gait, vertigo Psychiatric: denies: anxiety, depression, auditory hallucinations, visual hallucinations, homicidal thoughts, suicidal thoughts Hematological/Lymphatic: denies: easy bleeding, easy bruising, swollen glands ED Past Medical Hx - Past Medical History Hx Hypertension: Yes Hx Seizures: Yes Hx Psychiatric Treatment: Yes (Depression and anxiety) Additional medical history: angina and right eye injury. kidney stones - Surgical History Past Surgical History?: Yes Additional Surgical History: eye, kidney stone removal, and - Social History Smoking Status: Unknown if ever smoked - Medications Home Medications: Home Medications Medication Instructions Recorded Confirmed Last Taken Type levETIRAcetam [Keppra TAB] 750 mg PO BID #60 tablet 01/11/21 Unknown Rx HYDROcodone/APAP 5-325 [[place] 1 each PO Q4HR PRN #12 tablet 10/05/21 Unknown Rx 5/325] Ibuprofen [Motrin] 600 mg PO Q8H PRN #30 tablet 10/05/21 Unknown Rx ED Physical Exam - General Limitations: No Limitations General appearance: alert, in distress (Mild secondary to pain) - Head Head exam: Present: atraumatic, normocephalic - Eye Eye exam: Present: normal appearance - Neck Neck exam: Present: normal inspection, full ROM. Absent: tenderness - Respiratory Respiratory exam: Present: normal lung sounds bilaterally. Absent: respiratory distress, wheezes, rales, rhonchi - Cardiovascular Cardiovascular Exam: Present: regular rate, normal rhythm, normal heart sounds - GI/Abdominal GI/Abdominal exam: Present: soft. Absent: distended, tenderness, guarding, rebound - Expanded Upper Extremity Exam Right Elbow exam: Present: tenderness (Tenderness to palpation to the posterior elbow over the olecranon process, medial and lateral aspect of the elbow), swelling (Mild mainly posterior), pain w/ pronation/supination. Absent: full ROM (Patient unable to fully extend her right elbow due to pain. She also has pain with flexion, supernation and pronation), abrasion, laceration, crepidus, dislocation, erythema, effusion Neurosensory exam: Present: radial nerve intact, ulnar nerve intact, median nerve intact Vascular: Present: normal capillary refill, radial pulse (normal ). Absent: vascular compromise - Back Exam Back exam: Absent: paraspinal tenderness, vertebral tenderness (Patient has no lumbar spinal tenderness no paraspinal muscle tenderness; she mainly has tenderness over her right buttocks, with some mild bruising and swelling noted over the area. She does have pain to the buttocks with external rotation of the right hip the range of motion of the right hip enzo) - Neurological Exam Neurological exam: Present: alert, oriented X3, CN II-XII intact, other (mild limping gait) - Psychiatric Psychiatric exam: Present: normal affect, normal mood - Skin Skin exam: Present: ecchymosis (mild right buttocks ) ED Course Vital Signs 10/05/21 10/05/21 08:43 12:36 Temperature 98.1 F Pulse Rate 79 75 Respiratory 16 16 Rate Blood Pressure 147/90 Blood Pressure 140/91 [Right] O2 Sat by Pulse 99 98 Oximetry - Orthopedic Splinting/Casting Injury #1 Side: right Upper Extremity Injury Location: elbow Upper Extremity Immobilizer: sling/shoulder immobilize, posterior splint Additional Comments: Post splint placement shows that patient is neurovascularly intact. Patient tolerated well. ED Medical Decision Making - Radiology Data Radiology results: report reviewed Patient: BAHMAN LUND MR#: [id number] : 1980 Acct:[id number] Age/Sex: 41 / F ADM Date: 10/05/21 Loc: ED Attending Dr: Ordering Physician: PHIL DEL CID Date of Service: 10/05/21 Procedure(s): XR elbow 3+V RT Accession Number(s): [id number] cc: PHIL DEL CID Fluoro Time In Minutes: RIGHT ELBOW 3 VIEW(S) INDICATION / CLINICAL INFORMATION: fall/hit elbow/pain COMPARISON: None available. FINDINGS: BONES / JOINT(S): There is a nondisplaced fracture through the coronoid process. There is associated joint effusion. No significant arthritis. SOFT TISSUES: No significant abnormality. ADDITIONAL FINDINGS: None. Signer Name: Nik Mckeon DO Signed: 10/05/2021 10:34 AM Workstation Name: [id number] Transcribed By: NS Dictated By: NIK MCKEON DO Electronically Authenticated By: NIK MCKEON DO Signed Date/Time: 10/05/21 1034 DD/ 1033 TD/TT: Patient: BAHMAN LUND MR#: [id number] : 1980 Acct:[id number] Age/Sex: 41 / F ADM Date: 10/05/21 Loc: ED Attending Dr: Ordering Physician: PHIL DEL CID Date of Service: 10/05/21 Procedure(s): XR pelvis complete 3+V Accession Number(s): [id number] cc: PHIL DEL CID Fluoro Time In Minutes: PELVIS 3 VIEW(S) INDICATION / CLINICAL INFORMATION: fall down steps/right buttocks pain COMPARISON: None available. FINDINGS: BONES / JOINT(S): No acute fracture or subluxation. No significant arthritis. SOFT TISSUES: No significant abnormality. ADDITIONAL FINDINGS: None. IMPRESSION: No acute osseous findings of the pelvis. Signer Name: Chayito Miranda MD Signed: 10/05/2021 10:24 AM Workstation Name: [id number] Transcribed By: MICHEAL Dictated By: CHAYITO MIRANDA MD Electronically Authenticated By: CHAYITO MIRANDA MD Signed Date/Time: 10/05/21 1024 DD/ 1023 TD/TT: Patient: BAHMAN LUND MR#: [id number] : 1980 Acct:[id number] Age/Sex: 41 / F ADM Date: 10/05/21 Loc: ED Attending Dr: Ordering Physician: PHIL DEL CID Date of Service: 10/05/21 Procedure(s): XR spine sacrum/coccyx 2+V Accession Number(s): [id number] cc: PHIL DEL CID Fluoro Time In Minutes: SACRUM 3 VIEW(S) INDICATION / CLINICAL INFORMATION: fall/right buttocks pain COMPARISON: None available. FINDINGS: BONES / JOINT(S): No acute fracture or subluxation. No significant arthritis. SOFT TISSUES: No significant abnormality. ADDITIONAL FINDINGS: None. Signer Name: Nik Mckeon DO Signed: 10/05/2021 10:33 AM Workstation Name: [id number] Transcribed By: AVERY Dictated By: NIK MCKEON DO Electronically Authenticated By: NIK MCKEON DO Signed Date/Time: 10/05/21 1033 DD/ 1032 TD/TT: - Medical Decision Making X-rays of the sacrum, and pelvis shows nothing acute. X-ray of the right elbow does show that patient has a coronoid process fracture. Discussed x-ray results with patient. Patient was placed in a posterior arm splint and a sling. Splint care discussed with patient. Recommend elevating her arm as often as possible. Patient informed that she will need to follow-up with program eligibility specialist. Ortho referral was provided for patient on her discharge instructions. Patient expressed understanding and agree with plan. Patient was stable at time of discharge. Critical care attestation.: If time is entered above; I have spent that time in minutes in the direct care of this critically ill patient, excluding procedure time. ED Disposition Clinical Impression: Fracture of coronoid process of ulna, right, closed, Contusion of buttock Disposition: 01 HOME / SELF CARE / HOMELESS Is pt being admited?: No Does the pt Need Aspirin: No Condition: Stable Instructions: Cast or Splint Care, Adult, [id number], Contusion, Ulnar Fracture Additional Instructions: Do not remove splint or get it wet. Keep your arm in sling as often as possible but elevate your arm to help with any swelling. You can apply ice to your buttocks to help with pain and swelling. Take the Toradol and the hydrocodone as prescribed to help with pain. It is important that you follow-up with the program eligibility specialist listed in your discharge instructions for further evaluation of your fracture. It is important that you call, and try and sched ule appointment for next week. Return to the ER if your symptoms worsens or changes in any way. Prescriptions: Ibuprofen [Motrin] 600 mg PO Q8H PRN #30 tablet PRN Reason: Pain HYDROcodone/APAP 5-325 [[place] 5/325] 1 each PO Q4HR PRN #12 tablet PRN Reason: Pain Referrals: AILIN VARMA MD [Staff Physician] - 3-5 Days Forms: Work/School Release Form(ED) Time of Disposition: 10:57
--- NOTE | 2021-10-05 10:28 | XRay Report ---
PELVIS 3 VIEW(S) INDICATION / CLINICAL INFORMATION: fall down steps/right buttocks pain COMPARISON: None available. FINDINGS: BONES / JOINT(S): No acute fracture or subluxation. No significant arthritis. SOFT TISSUES: No significant abnormality. ADDITIONAL FINDINGS: None. IMPRESSION: No acute osseous findings of the pelvis. Signer Name: Pop Miranda MD Signed: 10/05/2021 10:24 AM Workstation Name: [email or web address]
--- NOTE | 2021-10-05 10:43 | XRay Report ---
SACRUM 3 VIEW(S) INDICATION / CLINICAL INFORMATION: fall/right buttocks pain COMPARISON: None available. FINDINGS: BONES / JOINT(S): No acute fracture or subluxation. No significant arthritis. SOFT TISSUES: No significant abnormality. ADDITIONAL FINDINGS: None. Signer Name: Nik Cornell DO Signed: 10/05/2021 10:33 AM Workstation Name: [id number]
--- NOTE | 2021-10-05 10:43 | XRay Report ---
RIGHT ELBOW 3 VIEW(S) INDICATION / CLINICAL INFORMATION: fall/hit elbow/pain COMPARISON: None available. FINDINGS: BONES / JOINT(S): There is a nondisplaced fracture through the coronoid process. There is associated joint effusion. No significant arthritis. SOFT TISSUES: No significant abnormality. ADDITIONAL FINDINGS: None. Signer Name: Nik Cornell DO Signed: 10/05/2021 10:34 AM Workstation Name: [id number]
[2021-10-05 12:37] VITALS: BP 140/91
== END 2021-10-05 12:38 | disposition home or self-care (01) ==
LOC: ED 08:27
DX: S52.041A Displaced fracture of coronoid process of right ulna, initial encounter for closed fracture (principal); S30.0XXA Contusion of lower back and pelvis, initial encounter; I10 Essential (primary) hypertension; R56.9 Unspecified convulsions; F41.8 Other specified anxiety disorders; Z79.899 Other long term (current) drug therapy; Z98.890 Other specified postprocedural states; W10.8XXA Fall (on) (from) other stairs and steps, initial encounter; Y93.89 Activity, other specified; Y92.89 Other specified places as the place of occurrence of the external cause; Y99.8 Other external cause status
CPT/HCPCS: 72190; 72220; 99283

== ENCOUNTER 2022-02-21 11:26 | Outpatient (CLI) | payer MEDICAID ==
[2022-02-21 12:19] LABS: Bilirubin,Urine NEG (Negative); Blood,Urine MOD (Negative); Color,Urine Yellow (Yellow); Urobilinogen,Urine < 2.0 mg/dL (<2.0)
[2022-02-21 12:35] LABS: Bacteria,Urine 4+ /HPF (Negative); Mucus,Urine FEW /HPF
== END 2022-02-21 11:27 | disposition home or self-care (01) ==
LOC: LAB 11:26
PROVIDERS: ATTEND Internal Medicine
DX: N39.0 Urinary tract infection, site not specified (principal)
CPT/HCPCS: 81001; 87086